=== PATIENT | female | born 1985 | race Caucasian/White ===

== ENCOUNTER 2018-10-02 07:36 | Inpatient (IN) | payer OTHER ==
[~2018-10-02] VITALS: Ht 162.6 cm; Wt 86.4 kg
[2018-10-02 07:43] VITALS: Ht 162.6 cm; Wt 86.4 kg
[2018-10-02] MEDS ORDERED: AMOX500T PO (07:46)
[2018-10-02] MEDS ORDERED: FERR134T PO (07:46)
[2018-10-02] MEDS ORDERED: PREN-93 PO (07:46)
[2018-10-02] MEDS ORDERED: LORA10CA PO (07:46)
[2018-10-02] MEDS ORDERED: LACTATED RINGER'S 1,000 ML IV SCH (08:07)
--- NOTE | 2018-10-02 08:27 | TRIAGE ---
OB Triage Datetime Report Generated by CPN: 10/02/2018 08:27 Datetime: 10/02/2018 08:10 Maternal Assessment Level of Consciousness: Fully Conscious DTR's/Clonus: DTRs 1+ Headache: Denies Blurred Vision: No Respiratory Effort: Unlabored Breath Sounds, Left: Clear and Equal Breath Sounds, Right: Clear and Equal Nausea/Vomiting: Denies RUQ Epigastric Pain: Denies Facial Edema: None Labor Evaluation Frequency: 2-4 Monitor Mode: External Duration (sec)2399: 50-70 Quality: Mild Pattern: Normal: <= 5 Contractions in 10 Minutes Resting Tone [place]: Relaxed Heart Rate FHR Baseline Rate: 145 Monitor Mode: External US Variability: Moderate 6-25 bpm Accelerations: 15X15 Decelerations: None Category: Category I Pain Assessment Pain Scale: 5 Pain Presence: Intermittent Pain Type: Cramping Pain Location: Back Pain Goal: 3 Membrane Status: Bulging Datetime: 10/02/2018 07:50 Vaginal Exam Dilatation (cms): 5.0 Effacement (%): 90 Station: -3 Exam By: RADHA SIMS Membrane Status: Bulging Vaginal Bleeding: None Cervix, Consistency: Soft Cervix, Position: Midposition Presentation 'A': Cephalic Lie 'A': Unable to Assess Datetime: 10/02/2018 07:40 Assessment Type: Triage Maternal Assessment Level of Consciousness: Fully Conscious DTR's/Clonus: DTRs 2+; No Clonus Headache: Denies Blurred Vision: No Respiratory Effort: Unlabored; Regular Rhythm; Equal Expansion Breath Sounds, Left: Clear and Equal Breath Sounds, Right: Clear and Equal Nausea/Vomiting: Denies RUQ Epigastric Pain: Denies Lower Extremities Edema: None Degree: None Upper Extremities Edema: None Degree: None Facial Edema: None Fall Risk Assessment History of Falling: (0) No Secondary Diagnosis: (0) No Ambulatory Aid: (0) Bedrest/Nurse Assist IV Therapy: (0) No Gait: (0) Normal/Bedrest/Immobile Mental Status: (0) Oriented to Own Ability Fall Score: 0 Fall Risk Score Definition: No Risk: No action required Datetime: 10/02/2018 07:39 Time of Arrival: 10/02/2018 07:50 EGA: 39.1 Arrived By: Ambulatory Arrived From: Home Datetime: 10/02/2018 07:27 Time of Arrival: 10/02/2018 07:27 Arrived By: Wheelchair Arrived From: Home Chief Complaint: OT CAME IN C/O UC'S AND SOME PINK DISCHARGE SINCE THIS AM. STATES POSITIVE M OVEMENT AND DENIES ANY OTHER COMPLICATION AT THIS TIME Movement: Present Contractions: Regular Time Contractions Began: 10/02/2018 04:00 Contractions: 5-10 Rupture of Membranes: Denies Vaginal Discharge: Denies Recent Sexual Intercouse: Denies Abdominal Trauma: Not Applicable Patient Complaints: Contractions Time Provider Notified: 10/02/2018 07:50 Provider Notified: CAITLYN Initial Plan: MONITOR AND VE
[2018-10-02] MEDS ORDERED: AMPICILLIN 2 GM/NS (PMX) 100 ML IV ONE (08:30)
[2018-10-02] MEDS ORDERED: LIDOCAINE 1% (MPF) 30 ML INJ INJ PRN (08:30)
[2018-10-02] MEDS ORDERED: CARBOPROST 250 MCG INJ IM PRN ×2 (08:30→11:30)
[2018-10-02] MEDS ORDERED: OXYTOCIN 30 UNITS/LR 500 ML IV SCH ×3 (08:30→11:15)
[2018-10-02] MEDS ORDERED: BUTORPHANOL 2 MG INJ IV PRN (08:30)
[2018-10-02] MEDS ORDERED: METHYLERGONOVINE 0.2 MG INJ IM PRN ×2 (08:30→11:30)
[2018-10-02] MEDS ORDERED: MISOPROSTOL 200 MCG TAB PR PRN ×2 (08:30→11:30)
[2018-10-02] MEDS ORDERED: OXYTOCIN 30 UNITS/LR 500 ML IV PRN ×2 (08:30→11:30)
[2018-10-02] MEDS ORDERED: MINERAL OIL LIGHT 10 ML VIAL ONE (10:20)
[2018-10-02] MEDS ORDERED: LACTATED RINGER'S 1,000 ML IV* SCH (11:15)
--- NOTE | 2018-10-02 11:15 | OPPN ---
Date/Time of Note Date/Time of Note DATE: 10/02/18 TIME: 11:13 Operative Report Planned Procedure Procedure date Oct 02, 2018 Procedure(s) Performed by see signature line Landfill Grader: A 2nd Landfill Grader none Pre-procedure diagnosis 39WEEKS 10/03 IUP IN LABOR [id number] Anesthesia Type: [id number] other (LOCAL) Post-Procedure Post-procedure diagnosis 39WEEKS 10/03 IUP IN LABOR Findings Live Baby GIRL, Apgars 6and 9, weight 7LBS 10OZ Estimated Blood Loss: 200 - 300 mls Specimen(s) none Grafts/Implant(s) none Complication(s) none SACHA BRADY MD Oct 02, 2018 11:15
[2018-10-02 11:27] VITALS: BP 148/86; PULSE 89; RESP 20
[2018-10-02] MEDS ORDERED: ONDANSETRON 4 MG INJ IV PRN (11:30)
[2018-10-02] MEDS ORDERED: HYDROCODONE/APAP (5/325) TAB PO PRN ×2 (11:30)
[2018-10-02] MEDS ORDERED: DIPHENHYDRAMINE 25 MG CAP PO PRN (11:30)
[2018-10-02] MEDS ORDERED: METHYLERGONOVINE 0.2 MG TAB PO PRN (11:30)
[2018-10-02] MEDS ORDERED: LANOLIN HPA 1 PKT TOP PRN (11:30)
[2018-10-02] MEDS ORDERED: WITCH HAZEL/GLYCERIN PAD PR PRN (11:30)
[2018-10-02] MEDS ORDERED: MAGNESIUM HYDROXIDE 30ML CUP PO PRN (11:30)
[2018-10-02] MEDS ORDERED: BENZOCAINE 20% 56 ML SPRAY TOP PRN (11:30)
[2018-10-02] MEDS ORDERED: ZOLPIDEM 5 MG TAB PO PRN (11:30)
[2018-10-02] MEDS ORDERED: NA PHOSPHATE/BIPHOS 133 ML ENEMA PR PRN (11:30)
[2018-10-02] MEDS ORDERED: AMPICILLIN 1 GM/NS (PMX) 50 ML IV SCH (12:00)
[2018-10-02] MEDS ORDERED: IBUPROFEN 600 MG TAB PO ONE (12:00)
[2018-10-02 12:11] VITALS: BP 148/87; PULSE 69; RESP 18
[2018-10-02] MEDS: IBUPROFEN 600 MG TAB PO SCH ×3 (14:23→23:42)
[2018-10-02 16:00] VITALS: BP 137/77; PULSE 85; RESP 20
[2018-10-02 20:15] VITALS: BP 147/80; PULSE 69; RESP 18
[2018-10-02] MEDS: SENNA/DOCUSATE NA (8.6MG/50MG) TAB PO SCH (20:34)
[2018-10-03 00:30] VITALS: BP 140/79; PULSE 87; RESP 18
[2018-10-03] MEDS: IBUPROFEN 600 MG TAB PO SCH ×3 (05:33→17:31)
[2018-10-03 08:00] VITALS: BP 118/69; PULSE 82; RESP 18
[2018-10-03] MEDS: SENNA/DOCUSATE NA (8.6MG/50MG) TAB PO SCH ×2 (09:00→20:56)
[2018-10-03 11:38] VITALS: BP 120/73; PULSE 75; RESP 18
[2018-10-03 16:06] VITALS: BP 132/80; PULSE 87; RESP 18
--- NOTE | 2018-10-03 16:23 | PN ---
Date/Time of Note Date/Time of Note DATE: 10/03/18 TIME: 16:21 Assessment/Plan VTE Prophylaxis Risk score (from Ns)>0 risk: 1 SCD applied (from Ns): No SCD contraindicated: low risk/ambulating Pharmacological prophylaxis: NA/contraindicated Pharm contraindication: low risk/ambulating Lines/Catheters [facility] Peripheral IV Assessment/Plan Assessment/Plan POST DAY 1 HOME TOMORROW RETURN TO CLINIC IN 2 WEEKS CONTINUE WITH VITAMINS OD AND FERROUS SULFATE PO TID DIET ADVISED COUNSELED INSTRUCTED CALL OFFICE IF THERE IS ANY PROBLEMS OR CONCERN Result Diagram: 10/03/18 0650 10/02/18 0846 Results 24hrs Laboratory Tests Test 10/03/18 06:43 10/03/18 06:50 Lab Scanned Report REFERENCE LAB White Blood Count 8.2 Red Blood Count 3.48 L Hemoglobin 10.7 L Hematocrit 31.7 L Mean Corpuscular Volume 91.1 Mean Corpuscular Hemoglobin 30.7 Mean Corpuscular Hemoglobin Concent 33.8 Red Cell Distribution Width 13.5 Platelet Count 103 L Mean Platelet Volume 14.1 H Immature Granulocytes % 0.900 H Neutrophils % 69.0 Lymphocytes % 18.0 Monocytes % 10.6 Eosinophils % 1.3 Basophils % 0.2 Nucleated Red Blood Cells % 0.0 Immature Granulocytes # 0.070 H Neutrophils # 5.6 Lymphocytes # 1.5 Monocytes # 0.9 Eosinophils # 0.1 Basophils # 0.0 Nucleated Red Blood Cells # 0.0 Subjective 24 Hr Interval Summary Free Text/Dictation FEELS GOOD, GOOD URINE OUTPUT, GOOD BOWEL MOVEMENT Exam/Review of Systems Vital Signs Vitals Vital Signs Date Temp Pulse Resp B/P (MAP) Pulse Ox O2 O2 Flow FiO2 Time Delivery Rate 10/03/18 98.1 87 18 132/80 Room Air 16:06 (97) 10/02/18 98 20:15 Intake and Output 10/02/18 10/02/18 10/03/18 1515:00 23:00 07:00 IntakeIntake Total 1000 ml OutputOutput Total 1050 ml 800 ml BalanceBalance -50 ml -800 ml Exam VITAL SIGNS STABLE: YES AFEBRILE: YES BREAST NOT ENGORGED, NON-TENDER, NO APPRECIABLE MASS: YES LUNGS CLEAR, NO RALES, WHEEZES, RHONCHI: YES SINUS RHYTHM WITHOUT MURMUR: YES ABDOMEN: NON-TENDER FUNDUS: BELOW UMBILICUS BOWEL SOUNDS: PRESENT UTERUS: FIRM EPISIOTOMY HEALING WELL: YES LOCHIA: LIGHT DEEP TENDON REFLEXES: 0 EXTREMITIES: NO CALF TENDERNESS EDEMA SCALE: NONE Medications Medications Current Medications Butorphanol Tartrate (Stadol) 2 mg Q2H PRN IV PAIN Last administered on 10/02/18at 09:20; Admin Dose 2 MG; Start 10/02/18 at 08:30 Lidocaine (Xylocaine 1% (Mpf)) 30 ml ONCE PRN INJ EPISIOTOMY; Start 10/02/18 at 08:30 Oxytocin/Lactated Ringer's 500 ml @ 500 mls/hr ONCE POST IV Last administered on 10/02/18at 10:48; Admin Dose 500 MLS/HR; Start 10/02/18 at 08:30 Oxytocin/Lactated Ringer's 500 ml @ 125 mls/hr POST IV Last administered on 10/02/18at 10:49; Admin Dose 125 MLS/HR; Start 10/02/18 at 08:30 Oxytocin/Lactated Ringer's 500 ml @ 0 mls/hr ONCE PRN IV VAGINAL BLEEDING; Start 10/02/18 at 08:30 Methylergonovine Maleate (Methergine) 0.2 mg ONCE PRN IM VAGINAL BLEEDING; Start 10/02/18 at 08:30 Carboprost Tromethamine (Hemabate) 250 mcg ONCE PRN IM VAGINAL BLEEDING; Start 10/02/18 at 08:30 Misoprostol (Cytotec) 1,000 mcg ONCE PRN UT VAGINAL BLEEDING; Start 10/02/18 at 08:30 Methylergonovine Maleate (Methergine) 0.2 mg Q6H PRN PO VAGINAL BLEEDING; Start 10/02/18 at 11:30 Ibuprofen (Motrin) 600 mg Q6 PO Last administered on 10/03/18at 11:37; Admin Dose 600 MG; Start 10/02/18 at 12:00 Acetaminophen/ Hydrocodone Bitart ([place] (5/325)) 1 tab Q4H PRN PO PAIN LEVEL 1-5; Start 10/02/18 at 11:30 Acetaminophen/ Hydrocodone Bitart ([place] (5/325)) 2 tab Q4H PRN PO PAIN LEVEL 6-10 Last administered on 10/02/18at 17:02; Admin Dose 2 TAB; Start 10/02/18 at 11:30 Ondansetron HCl (Zofran Inj) 4 mg Q6H PRN IV NAUSEA AND/OR VOMITING; Start 10/02/18 at 11:30 Diphenhydramine HCl (Benadryl) 25 mg Q6H PRN PO PRURITUS; Start 10/02/18 at 11:30 Zolpidem Tartrate (Ambien) 5 mg QHS PRN PO INSOMNIA; Start 10/02/18 at 11:30 Senna/Docusate Sodium (Senokot-S) 1 tab BID PO Last administered on 10/02/18at 20:34; Admin Dose 1 TAB; Start 10/02/18 at 21:00 Magnesium Hydroxide (Milk Of Mag) 30 ml Q12H PRN PO CONSTIPATION; Start 10/02/18 at 11:30 Sodium Biphosphate/ Sodium Phosphate (Fleet Enema) 133 ml DAILY PRN UT CONSTIPATION; Start 10/02/18 at 11:30 Witch Bianca/ Glycerin (Tucks Pads) 1 pad BEDSIDE MEDICATION PRN UT HEMORRHOID/EPISIOTMY PAIN Last administered on 10/02/18at 16:52; Admin Dose 1 PAD; Start 10/02/18 at 11:30 Benzocaine (Dermoplast [place]) 1 spray BEDSIDE MEDICATION PRN TOP HEMORRHOID/EPISIOTMY PAIN Last administered on 10/02/18at 16:52; Admin Dose 1 SPRAY; Start 10/02/18 at 11:30 Lanolin (Lanolin Hpa) 1 applic BEDSIDE MEDICATION PRN TOP BEDSIDE FOR TRACEY TO NIPPLES; Start 10/02/18 at 11:30 Measles/Mumps/ Rubella Vaccine Live (Mmr Ii Vaccine) 0.5 ml ONCE ONCE SC* ; Start 10/04/18 at 09:00; Stop 10/04/18 at 09:01 Diphtheria/ Tetanus/Acell Pertussis (Adacel) 0.5 ml ONCE ONCE IM* ; Start 10/04/18 at 09:00; Stop 10/04/18 at 09:01 Varicella Virus Vaccine Live (Varivax Vaccine With Diluent) 1,350 unit ONCE ONCE SC* ; Start 10/04/18 at 09:00; Stop 10/04/18 at 09:01 Oxytocin/Lactated Ringer's 500 ml @ 0 mls/hr ONCE PRN IV VAGINAL BLEEDING; Start 10/02/18 at 11:30 Methylergonovine Maleate (Methergine) 0.2 mg ONCE PRN IM VAGINAL BLEEDING; Start 10/02/18 at 11:30 Carboprost Tromethamine (Hemabate) 250 mcg ONCE PRN IM VAGINAL BLEEDING; Start 10/02/18 at 11:30 Misoprostol (Cytotec) 1,000 mcg ONCE PRN UT VAGINAL BLEEDING; Start 10/02/18 at 11:30 SACHA BRADY MD Oct 03, 2018 16:23
[2018-10-03 20:30] VITALS: BP 125/80; PULSE 81; RESP 18
[2018-10-04] MEDS: IBUPROFEN 600 MG TAB PO SCH ×4 (00:30→17:32)
[2018-10-04 04:43] VITALS: BP 129/76; PULSE 78; RESP 16
[2018-10-04 08:00] VITALS: BP 129/76; PULSE 78; RESP 18
[2018-10-04] MEDS: SENNA/DOCUSATE NA (8.6MG/50MG) TAB PO SCH (08:20)
[2018-10-04] MEDS ORDERED: DIPHTH/TET/ACEL PERTUSS (ADULT) 0.5 ML VIAL IM* ONE (09:00)
[2018-10-04] MEDS ORDERED: MEASLES,MUMPS,RUBELLA VACCINE INJ SC* ONE (09:00)
[2018-10-04] MEDS ORDERED: VARICELLA VACCINE LIVE/PF 1,350 UNIT/0.5 ML ML SC* ONE (09:00)
--- NOTE | 2018-10-04 12:48 | PREOPHP ---
DATE OF ADMISSION: 10/02/2018 HISTORY OF PRESENT ILLNESS: This is a 33-year-old lady, 2, para 1, EDC of 10/08/2018 at 39 w eeks' , admitted to labor and delivery area in labor. [facility]. She started to have contractions abou t few hours prior to admission and got worse up to the time of admission. PAST PERSONAL HISTORY: No history of diabetes, TB, asthma. ALLERGIES: NO ALLERGIES. MEDICATIONS: She does not take any drugs except her: 1. Iron. 2. Vitamins. SOCIAL HISTORY: The patient does not smoke. She does not drink. The patient has a history of posit forrest marijuana intake, but she claims that she has had taken that for many months. REVIEW OF SYSTEMS: She is 2, para 1. Her first delivery was in 2009. Baby weighed 7 pounds . Normal delivery. REVIEW OF SYSTEMS: CARDIOVASCULAR: No chest pains. RESPIRATORY: No cough. GASTROINTESTINAL: No diarrhea, no vomiting. GENITOURINARY: No dysuria. PHYSICAL EXAMINATION: GENERAL: Reveals a conscious, coherent lady and in no acute distress. VITAL SIGNS: Her blood pressure is 120/80, pulse rate 80 per minute, respirations 16 per minute. BREASTS, HEART AND LUNGS: Within normal limits. ABDOMEN: Soft. No tenderness noted. Fundic height 36 cm. heart tones 140 per minute. PELVIC: On admission done by nurse revealed the cervix to be 3 cm dilated, 100% effaced, station -2 in cephalic presentation with the bag of water intact. EXTREMITIES: No pedal edema. ADMITTING DIAGNOSIS: 39 weeks' intrauterine in labor. PLAN: The patient was planned to have Pitocin augmentation. The plans were explained to the patient and she understood everything totally. The risks, benefits and alternatives were discussed with her as well. The patient received Stadol x1 and she progressed well. Dictated By: SACHA BRADY MD NS/NTS Conf#: [id number] DID#: [id number] CC: JACKY JUAREZ MD;*EndCC*
--- NOTE | 2018-10-04 14:00 | OPR ---
DATE OF OPERATION: 10/02/2018 HISTORY OF PRESENT ILLNESS: See dictated history and physical. PHYSICAL EXAMINATION: See dictated history and physical. ADMITTING DIAGNOSIS: 39 weeks' intrauterine in labor. She was given ampicillin for positi ve GBS. Then, the patient progressed well. She received Stadol x1 and she progressed well, had a no rmal spontaneous vaginal delivery on 10/02/2018, delivered a healthy baby girl at 10:27 a.m. 's 6 and 9 over midline episiotomy, delivered a healthy baby. Baby weighed 6 pounds 10 ounces, 19 inche s long. Cord segment was obtained for blood gases. Placenta was delivered spontaneously and complet e. Manual exploration of the uterus revealed no membranes left behind. Cervix, vagina, and vu lva were free of hematoma. The position was direct occiput anterior. There were [address] rd. The placenta was normal with a smooth shiny side and a pinkish maternal side. Midline epi siotomy was repaired in layers using 2-0 chromic with 1% Xylocaine. The patient tolerated the delive ry well. Estimated blood loss about 300 mL. Vital signs were stable during and after the delivery. Dictated By: SACHA BRADY MD NS/NTS Conf#: [id number] DID#: [id number] CC: SACHA BRADY MD;*EndCC*
[2018-10-04 16:00] VITALS: BP 120/68; PULSE 83; RESP 18
--- NOTE | 2018-10-09 13:32 | DS ---
DATE OF ADMISSION: 10/02/2018 DATE OF DISCHARGE: 10/04/2018 HISTORY OF PRESENT ILLNESS: See dictated history and physical. PHYSICAL EXAMINATION: See dictated history and physical. ADMITTING DIAGNOSIS: 39 weeks' intrauterine in labor. PROGRESS OF LABOR: See dictated history and physical. The patient progressed well, had a normal spo ntaneous vaginal delivery on 10/02/2018, delivered a healthy baby girl at 10:27 a.m. 's 6 and 9 over midline episiotomy. She tolerated the delivery well. She did have good course. She had a regular diet. She had good bowel movement . She was discharged home on the second day on general diet and activity was restricted. She was counseled. She was instructed. She was told to continue to take her iron and vitamins at home. FINAL DIAGNOSIS: She was discharged home in good and stable condition. HOSPITAL COURSE: Hematocrit on discharge was 31.7, hemoglobin 10.7. FINAL DIAGNOSIS: 39 weeks' intrauterine in labor and delivered. Dictated By: SACHA BRADY MD NS/NTS Conf#: [id number] DID#: [id number] CC: SACHA BRADY MD;*EndCC*
== END 2018-10-04 18:55 | disposition home or self-care (01) | DRG 807 ==
LOC: OBT 07:36 → L-D 07:37 → OBT 07:50 → L-D 07:50 → PP1 12:12
PROVIDERS: ADMIT Obstetrics & Gynecology; ATTEND Obstetrics & Gynecology
PROC: 10E0XZZ Delivery of Products of Conception, External Approach (ICD-10-PCS; principal; 2018-10-02)
PROC: 0W8NXZZ Division of Female Perineum, External Approach (ICD-10-PCS; 2018-10-02)
DX: O99.824 Streptococcus B carrier state complicating childbirth (principal); Z37.0 Single live birth; Z3A.39 39 weeks gestation of pregnancy
CPT/HCPCS: 36415; 36600; 76815; 80053; 80307; 81001; 82803; 84560; 85025; 85610; 85730; 86592; 86850; 86900; 86901; 93970; 99464; G0463; J0290; J0595; J2590; J7120